=== PATIENT | female | born 1950 | race Caucasian/White ===

== ENCOUNTER 2017-09-04 07:25 | Day surgery (SDC) | payer MEDICARE, BC ==
[2017-09-04] MEDS ORDERED: BUPIVACAINE/EPI 0.5% 10 ML SOL INFIL ONE ×2 (07:43)
[2017-09-04] MEDS ORDERED: LIDOCAINE HCL 1% MPF 30 SOL ONE (08:01)
[2017-09-04] MEDS ORDERED: FENTANYL 100MCG/2ML SOL ONE (08:01)
[2017-09-04] MEDS ORDERED: PROPOFOL 500 MG/50 ML EMU IV ONE (08:02)
[2017-09-04 10:02] VITALS: BP 117/71; PULSE 61; RESP 20; TEMP 97.5; O2SAT 100
== END 2017-09-04 10:20 | disposition home or self-care (01) | DRG 607 ==
LOC: SURG 07:25
PROVIDERS: ATTEND Surgery
DX: L72.3 Sebaceous cyst (principal); E11.9 Type 2 diabetes mellitus without complications
CPT/HCPCS: J3010; A6402; J2001; J2704